=== PATIENT | male | born 1960 ===

== ENCOUNTER → 2018-10-08 | Outpatient (CLI) | payer OTHER ==
[~2018-10-08] MED LIST: HYDACE10B PO; Hydrocodone-Ap1 EA20; TEMA15 PO
== END | disposition home or self-care (01) ==
LOC: LAB SHORT 11:08 → PLD 11:08
DX: L82.1 Other seborrheic keratosis (principal); D48.5 Neoplasm of uncertain behavior of skin
CPT/HCPCS: 88305

== ENCOUNTER 2019-02-06 07:11 | Day surgery (SDC) | payer OTHER ==
[~2019-02-06] VITALS: Ht 172.7 cm; Wt 80.2 kg
[~2019-02-06 07:11] MED LIST changes: -Hydrocodone-Ap1 EA20
[2019-02-06] MEDS ORDERED: Hydrocodone-Ap1 EA20 (07:44)
== END 2019-02-06 09:10 | disposition home or self-care (01) ==
LOC: ORSCSDS 07:11
PROVIDERS: Internal Medicine Gastroenterology
PROC: 0DBK8ZX Excision of Ascending Colon, Via Natural or Artificial Opening Endoscopic, Diagnostic (ICD-10-PCS; principal; 2019-02-06 08:30)
PROC: 0DBL8ZX Excision of Transverse Colon, Via Natural or Artificial Opening Endoscopic, Diagnostic (ICD-10-PCS; principal; 2019-02-06 08:30)
PROC: 0DBM8ZX Excision of Descending Colon, Via Natural or Artificial Opening Endoscopic, Diagnostic (ICD-10-PCS; principal; 2019-02-06 08:30)
DX: Z12.11 Encounter for screening for malignant neoplasm of colon (principal); Z86.010 Personal history of colon polyps; R10.9 Unspecified abdominal pain; D12.2 Benign neoplasm of ascending colon; D12.3 Benign neoplasm of transverse colon; D12.4 Benign neoplasm of descending colon; K57.30 Diverticulosis of large intestine without perforation or abscess without bleeding; K64.8 Other hemorrhoids; Z87.891 Personal history of nicotine dependence; Z79.899 Other long term (current) drug therapy
CPT/HCPCS: 88305; J2704; J7120

== ENCOUNTER → 2021-02-07 | Outpatient (CLI) | payer BC ==
[~2021-02-07] MED LIST changes: +Hydrocodone-Ap1 EA20
== END ==
LOC: LAB 11:17 → LAB SHORT 11:17
PROVIDERS: Family Medicine
DX: Z51.81 Encounter for therapeutic drug level monitoring (principal); Z79.899 Other long term (current) drug therapy
CPT/HCPCS: G0480